=== PATIENT | male | born 1940 | race Caucasian/White ===

== ENCOUNTER → 2016-06-05 | Outpatient (CLI) | payer MEDICARE, MEDICAID ==
[~2016-06-05] MED LIST: ASCORBIC ACID250 MG PO; BETAPACE DPS80 MG PO; FEOSOL-DPS325 MG PO; LASIX DPS20 MG PO; LIPITOR DPS40 MG PO; MIRALAX PACKET17 GM PO; TYLENOL DPS325 MG PO; ULTRAM DPS50 MG PO; VITAMIN B-121000 MCG PO; XARELTO15 MG PO
== END | disposition home or self-care (01) ==
DX: R06.02 Shortness of breath (principal); I25.10 Atherosclerotic heart disease of native coronary artery without angina pectoris; E78.5 Hyperlipidemia, unspecified; J98.4 Other disorders of lung; Z79.899 Other long term (current) drug therapy